=== PATIENT | male | born 1940 | race African-American/Black ===

== ENCOUNTER 2017-09-30 02:38 | Emergency (ER) | payer OTHER ==
[~2017-09-30] VITALS: Ht 175.3 cm; Wt 88.5 kg
[2017-09-30 02:41] VITALS: BP 204/126; PULSE 112; RESP 16; TEMP 99.6; O2SAT 95
[2017-09-30 03:07] VITALS: BP 205/121; PULSE 101; RESP 18; TEMP 99.1; O2SAT 96
[2017-09-30 03:27] LABS: AUTOMATED NEUTROPHIL # 4.8 TH/MM3 (1.8-7.7); BASOPHIL # 0.2 TH/MM3 (0-0.2); BASOPHIL % 2.4 % (0.0-2.0); EOSINOPHIL # 0.4 TH/MM3 (0-0.4); EOSINOPHIL % 4.7 % (0.0-4.0); HEMATOCRIT 40.5 % (39.0-51.0); HEMOGLOBIN 13.6 GM/DL (13.0-17.0); LYMPH % 23.3 % (9.0-44.0); LYMPHOCYTE # 1.9 TH/MM3 (1.0-4.8); MEAN CELL VOLUME 87.9 FL (80.0-100.0); MEAN CORPUSCULAR HEMOGLOBIN 29.6 PG (27.0-34.0); MEAN CORPUSCULAR HGB CONC 33.7 % (32.0-36.0); MONO % 9.8 % (0.0-8.0); MONOCYTE # 0.8 TH/MM3 (0-0.9); NEUT % 59.8 % (16.0-70.0); PLATELET COUNT 303 TH/MM3 (150-450); RED BLOOD COUNT 4.61 MIL/MM3 (4.50-5.90); RED CELL DISTRIBUTION WIDTH 14.8 % (11.6-17.2)
[2017-09-30 03:59] LABS: C-REACTIVE PROTEIN 5.95 MG/DL (0.00-0.30); CALCIUM 8.8 MG/DL (8.5-10.1); CREATININE 1.15 MG/DL (0.60-1.30)
[2017-09-30 04:11] VITALS: BP 189/113; PULSE 96; RESP 18; O2SAT 97
[2017-09-30] MEDS ORDERED: MORPHINE SULFATE 4 MG/ML INJ IV PUSH ONE (04:15)
[2017-09-30] MEDS ORDERED: KETOROLAC TROMETHAMINE 30 MG/ML (IVP) VIAL IV PUSH ONE (04:15)
--- NOTE | 2017-09-30 04:27 | PD ---
HPI Chief Complaint: Edema Time Seen by Provider: 02:53 Travel History International Travel<30 days: No Contact w/Intl Traveler<30days: No Traveled to known affect area: No History of Present Illness HPI Patient is a 77-year-old male coming in complaining that his right hand for the last 2 days has been progressively swelling from the wrist and to the palm of the hand progressively his fingers are feeling numb or and sensation decreased on the dorsal aspect of the right third and fourth finger. Patient denies history of gout he denies injury he denies insect bite he denies cut he denies trauma. Patient's blood pressure is 209/110 he is not on any medications for high pressure now he said he's been to his doctor and that was slightly elevated but never started on meds PFSH Past Medical History Medical History: Denies Significant Hx Diminished Hearing: No Tetanus Vaccination: < 5 Years Influenza Vaccination: No Past Surgical History Abdominal Surgery: Yes (L inguinal hernia repair) Social History Alcohol Use: No Tobacco Use: No (quit 1990) Substance Use: No Allergies-Medications (Allergen,Severity, Reaction): Coded Allergies: No Known Drug Allergies (Verified Allergy, Unknown, 09/30/17) Reported Meds & Prescriptions Reported Meds & Active Scripts Active Norvasc (Amlodipine Besylate) 5 Mg Tab 5 Mg PO DAILY Tramadol (Tramadol HCl) 50 Mg Tab 50 Mg PO Q6H PRN Ibuprofen 600 Mg Tab 600 Mg PO Q6H PRN Review of Systems Except as stated in HPI: all other systems reviewed are Neg General / Constitutional: No: Fever HENT: No: Headaches Musculoskeletal: Positive: Myalgias, Arthralgias Physical Exam Narrative GENERAL: His right hand is slightly deformed with swelling in the palm and the lateral aspect of the right wrist is warm and red there is no eschar or any signs of a break in the skin SKIN: Warm and dry. Right wrist hot warm red tender HEAD: Atraumatic. Normocephalic. EYES: Pupils equal and round. No scleral icterus. No injection or drainage. ENT: No nasal bleeding or discharge. Mucous membranes pink and moist. NECK: Trachea midline. No JVD. CARDIOVASCULAR: Regular rate and rhythm. RESPIRATORY: No accessory muscle use. Clear to auscultation. Breath sounds equal bilaterally. GASTROINTESTINAL: Abdomen soft, non-tender, nondistended. Hepatic and splenic margins not palpable. MUSCULOSKELETAL: Extremities without clubbing, cyanosis, or edema. No obvious deformities. NEUROLOGICAL: Awake and alert. No obvious cranial nerve deficits. Motor grossly within normal limits. Five out of 5 muscle strength in the arms and legs. Normal speech. PSYCHIATRIC: Appropriate mood and affect; insight and judgment normal. Data Data Last Documented VS Vital Signs Date Time Temp Pulse Resp B/P (MAP) Pulse Ox O2 Delivery O2 Flow Rate FiO2 09/30/17 04:37 94 16 163/102 (122) 96 Room Air 09/30/17 03:07 99.1 Orders Orders Electrocardiogram (09/30/17 ) Iv Access Insert/Monitor (09/30/17 03:14) Westergren Sedimentation Rate (09/30/17 03:14) C-Reactive Protein (Crp) (09/30/17 03:14) Complete Blood Count With Diff (09/30/17 03:14) Basic Metabolic Panel (Bmp) (09/30/17 03:14) Lactic Acid (09/30/17 03:14) Uric Acid (09/30/17 04:12) Ketorolac Inj (Toradol Inj) (09/30/17 04:15) Morphine Inj (Morphine Inj) (09/30/17 04:15) Hand, Complete ([id number]) (09/30/17 ) Chest, Single Ap (09/30/17 ) Amlodipine (Norvasc) (09/30/17 05:00) Ed Discharge Order (09/30/17 05:50) Labs Laboratory Tests Test 09/30/17 03:15 White Blood Count 8.0 TH/MM3 Red Blood Count 4.61 MIL/MM3 Hemoglobin 13.6 GM/DL Hematocrit 40.5 % Mean Corpuscular Volume 87.9 FL Mean Corpuscular Hemoglobin 29.6 PG Mean Corpuscular Hemoglobin Concent 33.7 % Red Cell Distribution Width 14.8 % Platelet Count 303 TH/MM3 Mean Platelet Volume 7.0 FL Neutrophils (%) (Auto) 59.8 % Lymphocytes (%) (Auto) 23.3 % Monocytes (%) (Auto) 9.8 % Eosinophils (%) (Auto) 4.7 % Basophils (%) (Auto) 2.4 % Neutrophils # (Auto) 4.8 TH/MM3 Lymphocytes # (Auto) 1.9 TH/MM3 Monocytes # (Auto) 0.8 TH/MM3 Eosinophils # (Auto) 0.4 TH/MM3 Basophils # (Auto) 0.2 TH/MM3 CBC Comment DIFF FINAL Differential Comment Erythrocyte Sedimentation Rate 42 mm/hr Blood Urea Nitrogen 9 MG/DL Creatinine 1.15 MG/DL Random Glucose 126 MG/DL Calcium Level 8.8 MG/DL Sodium Level 134 MEQ/L Potassium Level 3.7 MEQ/L Chloride Level 101 MEQ/L Carbon Dioxide Level 28.0 MEQ/L Anion Gap 5 MEQ/L Estimat Glomerular Filtration Rate 75 ML/MIN Lactic Acid Level 1.3 mmol/L Uric Acid 6.0 MG/DL C-Reactive Protein 5.95 MG/DL MDM Medical Decision Making Medical Screen Exam Complete: Yes Emergency Medical Condition: Yes Differential Diagnosis Differential diagnosis includes gout versus rheumatoid arthritis versus septic joint versus cellulitis of the hand and wrist versus trauma fracture Narrative Course Patient's x-ray shows degenerative changes and sclerotic bones most likely from recurrent gout attacks they come and go. When I tell the patient is he says yes this has swelled up and gone down before in the past and his knee has been the same. His blood pressure continues to be high even after the pain meds I will give him Norvasc 5 mg to start daily [facility] I will give him ibuprofen as well and a few tramadol for the pain Diagnosis Primary Impression: Wrist pain, right Additional Impression: Wrist swelling Patient Instructions: General Instructions, Gout (ED), Hypertension (ED) Scripts Amlodipine (Norvasc) 5 Mg Tab 5 MG PO DAILY for Blood Pressure Management, #30 TAB 2 Refills Prov: Kevin Muñoz MD 09/30/17 Tramadol (Tramadol) 50 Mg Tab 50 MG PO Q6H Y for PAIN, #10 TAB 0 Refills Prov: Kevin Muñoz MD 09/30/17 Ibuprofen (Ibuprofen) 600 Mg Tab 600 MG PO Q6H Y for Pain/Inflammation, #40 TAB 0 Refills Prov: Kevin Muñoz MD 09/30/17 Disposition: 01 DISCHARGE HOME Condition: Good Kevin Muñoz MD Sep 30, 2017 04:27
[2017-09-30 04:37] VITALS: BP 163/102; PULSE 94; RESP 16; O2SAT 96
--- NOTE | 2017-09-30 04:44 | RADRPT ---
EXAM DATE/TIME: 09/30/2017 04:19 [facility] COMPARISON: No previous studies available for comparison. INDICATIONS : Right hand swelling for two days with no known trauma. MEDICAL HISTORY : None. SURGICAL HISTORY : None. ENCOUNTER: Initial ACUITY: 2 days PAIN SCORE: 0/10 LOCATION: Bilateral chest FINDINGS: No prior exams are available for comparison. There is a focal air density seen in the subpleural elisa on at the right upper lateral lung. There is a calcified granuloma at the lateral mid left chest. The heart size is normal. No effusion is seen. CONCLUSION: Focal subpleural consolidation in the right upper lung. A mass could have this appearance. Efrem Moore MD on September 30, 2017 at 4:40 Board Certified Radiologist. This report was verified electronically.
--- NOTE | 2017-09-30 04:47 | RADRPT ---
EXAM DATE/TIME: 09/30/2017 04:21 [facility] COMPARISON: No previous studies available for comparison. INDICATIONS : Right hand swelling for two days with no known trauma. MEDICAL HISTORY : None. SURGICAL HISTORY : None. ENCOUNTER: Initial ACUITY: 2 days PAIN SCORE: 8/10 LOCATION: Right hand FINDINGS: No fracture seen. There is degenerative change at the radiocarpal joint with joint space narrowing, h ypertrophic change, and subchondral sclerosis. There is a prominent area of cystic change at the dist al ulna. There is chondrocalcinosis at the TFCC region. There is chronic degenerative change at the f irst carpometacarpal joint with remodeling, hypertrophic change and cystic change. There is joint spa ce narrowing at the third MCP joint with some surrounding hypertrophic change. CONCLUSION: Degenerative change as described above. Efrem Moore MD on September 30, 2017 at 4:42 Board Certified Radiologist. This report was verified electronically.
[2017-09-30] MEDS ORDERED: amLODIPine BESYLATE 5 MG TAB PO ONE (05:00)
[2017-09-30] MEDS ORDERED: IBUP-232 PO (05:13)
[2017-09-30] MEDS ORDERED: TRAM50TA PO (05:13)
[2017-09-30] MEDS ORDERED: AMLO5 PO (05:14)
[2017-09-30 05:59] VITALS: BP 169/86
--- NOTE | 2017-09-30 14:45 | EKG ---
Date Performed: 09/30/2017 Time Performed: 03:15:30 PTAGE: 77 years EKG: Sinus rhythm INFERIOR MYOCARDIAL INFARCTION ABNORMAL ECG NO PREVIOUS TRACING Possible anterior myocardial infarction. Clinical correlation is precious mmended. DOCTOR: Joel Guadalupe Interpretating Date/Time 09/30/2017 14:43:43
== END 2017-09-30 06:01 | disposition home or self-care (01) ==
LOC: NEPE 02:38
DX: M25.531 Pain in right wrist (principal); R94.31 Abnormal electrocardiogram [ECG] [EKG]
CPT/HCPCS: 71045; 73130; 80048; 83605; 84550; 85025; 85652; 86140; 93005; 96374; 96375; 99285; J1885; J2270